=== PATIENT | female | born 1940 | race Caucasian/White ===

== ENCOUNTER → 2019-07-04 09:58 | Outpatient (CLI) | payer MEDICARE, OTHER, SELFPAY ==
--- NOTE | 2019-07-04 | DI.CT.S_ITS ---
PROCEDURE: CT ABDOMEN PELVIS WO/W CON INDICATIONS: Gross hematuria TECHNIQUE: Optional 5 mm thick noncontrast images acquired from the diaphragm to the symphysis pubis. After the administration of intravenous contrast, 5 mm thick images acquired from the diaphragm to the symphysis pubis after a 10-minute delay. 2 mm thick coronal and sagittal reformats were then performed of the kidneys and ureters. For radiation dose reduction, the following was used: automated exposure control, adjustment of mA and/or kV according to patient size. COMPARISON: None. FINDINGS: Image quality: Excellent. Lung bases: Lung bases are clear. Heart size is normal. Partially imaged an intact right breast implant. Urinary system: Both kidneys are normal size. There is an ovoid calcification in the right renal pelvis measuring about 1.3 x 1.5 cm. No hydronephrosis. Trace narrowing at the ureteropelvic junctions bilaterally. No left-sided urinary calcifications. No perinephric fat stranding. There is normal bilateral renal enhancement. Renal calyces appear normal in morphology when filled with contrast. Opacified portions of both ureters demonstrate normal caliber. The urinary bladder is completely decompressed and there are no visible calcifications. Other solid organs: Liver is normal in size and enhancement. There is a bilobed or thinly septated 4.2 cm cyst in the right lobe adjacent to the inferior vena cava. A few other tiny hypodensities are present in right and left liver lobes, the largest in left lobe is measuring 11 mm. Gallbladder is surgically absent. Biliary system is prominent postcholecystectomy. Spleen is normal in size and enhancement. Mild nodular low-density thickening of both adrenal glands, left more so than right. There is a multiloculated, microcystic, low-density mass in the proximal tail of the pancreas measuring roughly 2.3 x 1.4 x 1.6 cm. No ductal dilatation. No associated calcification. Peritoneum and bowel: Bowel loops demonstrate normal wall thickness and caliber. Occasional diverticulosis. Nonvisualization of the appendix. No free fluid or air. Nodes and vessels: No retroperitoneal or mesenteric adenopathy by size criteria. Mild fusiform aneurysmal dilatation of the mid celiac artery measuring up to 13 mm in diameter for length of about 1.8 cm. Aorta and inferior vena cava are normal in size. Abdominal wall: No ventral hernias. Pelvis: No pathologic free pelvic fluid. No inguinal hernias or adenopathy. Hysterectomy and possible right oophorectomy. Normal left ovarian tissue. Bones: No suspicious bony lesions. Right hip arthroplasty. Moderate upper lumbar leftward scoliosis. Multilevel degenerative disc change. No vertebral body compression fractures. IMPRESSION: 1. Nonobstructing right renal pelvis 1.5 cm calcification. 2. Nonobstructive, mild bilateral ureteropelvic junction narrowing. 3. Interval development of 2.3 cm multiloculated pancreatic cystic mass. Further evaluation with pancreatic protocol contrast enhanced MRI is recommended. 4. Chronic mid celiac artery aneurysm. 5. Other findings mentioned are stable. Dictated by: Adriana Mccormack M.D. on 07/04/2019 at 11:56 Approved by: Adriana Mccormack M.D. on 07/04/2019 at 12:14
[2019-07-04 10:27] LABS: Add Manual Diff / Slide Review NO; Basophils Absolute Auto 100 /uL (0-100); Basophils Percent Auto 1.1 % (0-2); Eosinophils Absolute Auto 300 /uL (0-450); Eosinophils Percent Auto 5.9 % (2-4); Hematocrit 46.5 % (36-46); Hemoglobin 15.6 g/dL (12.0-16.0); Lymphocytes Absolute Auto 1200 /uL (1100-4500); Lymphocytes Percent Auto 20.2 % (25-40); Mean Corpuscular HGB Conc 33.5 % (30-36); Mean Corpuscular Volume 92.6 fL (80-100); Monocytes Absolute Auto 300 /uL (0-900); Neutrophils Absolute Auto 3900 /uL (1500-7000); Neutrophils Percent Auto 66.8 % (50-75); Platelet Count 289 X10^3/uL (150-400); Red Blood Cell Count 5.03 X10^6/uL (4.0-5.2); Red Cell Distribution Width 13.2 % (11.6-14.8); White Blood Cell Count 5.8 X10^3/uL (4.5-11.0)
[2019-07-04 10:39] LABS: Blood Urea Nitrogen 14 mg/dL (7-17); Calcium 9.4 mg/dL (8.4-10.2); Carbon Dioxide 27 mmol/L (22-32); Chloride 103 mmol/L (98-107); Estimated Glomerular Filt Rate > 60.0 mL/min (>60); Glucose 105 mg/dL (80-110); HEMOLYSIS < 15 (0-50); Potassium 3.7 mmol/L (3.4-5.1); Sodium 140 mmol/L (137-145)
== END ==
PROVIDERS: Family Provider Internal Medicine Geriatric Medicine; PCP Internal Medicine Geriatric Medicine; Visit Provider Urology
DX: R31.0 Gross hematuria (principal); K76.89 Other specified diseases of liver; K86.9 Disease of pancreas, unspecified; N20.0 Calculus of kidney; N13.5 Crossing vessel and stricture of ureter without hydronephrosis; I72.8 Aneurysm of other specified arteries; M41.9 Scoliosis, unspecified; Z90.49 Acquired absence of other specified parts of digestive tract; Z96.641 Presence of right artificial hip joint
CPT/HCPCS: 36415; 74178; 80048; 85025; Q9967

== ENCOUNTER → 2019-07-25 12:26 | Outpatient (CLI) | payer MEDICARE, OTHER, SELFPAY ==
--- NOTE | 2019-07-25 | DI.MRI.S_ITS ---
PROCEDURE: MR ABDOMEN WO/W CON INDICATIONS: CYSTIC MASS OF PANCREAS TECHNIQUE: Coronal HASTE, axial 2D FLASH in- and [id number]; axial breath-hold T2 FSE with fat saturation from the hepatic dome to the iliac crests. Oblique coronal thin-slice and radial thick slab HASTE through the biliary system. Dynamic axial VIBE during administration of contrast. Post-contrast coronal VIBE or 2D FLASH with fat saturation from the hepatic dome to the iliac crests. Optional diffusion weighted imaging and ADC may be performed. COMPARISON: [facility], CT, IVP (ABD & PEL WWO CONTRAST), 07/17/2016, 10:18. [facility], CT, CT ABDOMEN PELVIS WO/W CON, 07/04/2019, 10:45. FINDINGS: Image quality: There is mild motion artifact. Pancreas and biliary system: The gallbladder is surgically absent. There is intra-and extrahepatic biliary ductal dilatation with the common bile duct measuring up to approximately 12 m. There is tapering distally into the ampulla of Vater without a discrete filling defect to suggest choledocholithiasis. The main pancreatic duct is normal in caliber. At the junction of the pancreatic body and tail, there is a lobulated thin walled cystic lesion redemonstrated measuring up to approximately 2.4 x 1.4 x 1.4 cm. There are associated thin septations. No discrete nodular solid component identified. No definite suspicious internal enhancement. This likely communicates with the main pancreatic duct. The findings most likely represents a small side branch intraductal papillary mucinous neoplasm (IPMN). In addition, within the adjacent pancreatic tail, there is an oval cystic lesion measuring up to 1.9 x 0.8 cm in transverse dimension also with suspected communication with the main pancreatic duct. In the pancreatic body, there are 2-3 small additional cystic foci measuring up to 0.4 cm adjacent to the main pancreatic duct. In the pancreatic head, there is also a small cystic lesion measuring up to 0.6 cm adjacent to the pancreatic duct. No associated internal enhancement within these lesions following contrast ministration. Findings also likely represent small side branch IPMNs. Solid organs: Multiple cysts are redemonstrated within the liver including a septated cyst in the medial right hepatic dome. No definite suspicious hepatic mass. Spleen is normal in size and enhancement. No adrenal nodules. Kidneys redemonstrate a filling defect within the right renal pelvis consistent with a renal stone, measuring up to 1.0 cm. No definite associated hydronephrosis. No left hydronephrosis. Nodes and vessels: No retroperitoneal or mesenteric adenopathy by size criteria. Aorta and inferior vena cava are normal in size. Bowel and peritoneum: Visualized bowel loops are normal in caliber throughout. No free fluid. Lung bases: No basal pleural effusions. Heart size is enlarged. Bones and soft tissues: No ventral hernias. Bone marrow is normal in overall signal. IMPRESSION: 1. Lobulated cystic lesion at the junction of the pancreatic body and tail most likely represents a sidebranch IPMN. Given the size of the lesion and change compared to older studies, followup is recommended in 6 months to demonstrate stability. 2. Additional small cystic lesions within the pancreas also likely represent small sidebranch IPMNs. Recommend attention on followup. 3. Right nephrolithiasis without evidence of hydronephrosis. Dictated by: Denver Garcia M.D. on 07/25/2019 at 16:54 Approved by: Denver Garcia M.D. on 07/25/2019 at 17:04
== END ==
PROVIDERS: Family Provider Internal Medicine Geriatric Medicine; PCP Internal Medicine Geriatric Medicine; Referring Provider Internal Medicine Geriatric Medicine; Visit Provider Internal Medicine Geriatric Medicine
DX: K86.2 Cyst of pancreas (principal); N20.0 Calculus of kidney
CPT/HCPCS: 74183

== ENCOUNTER → 2020-06-29 12:42 | Outpatient (CLI) | payer MEDICARE, OTHER, SELFPAY ==
--- NOTE | 2020-06-29 | DI.MRI.S_ITS ---
PROCEDURE: MR LUMBAR SPINE WO CON INDICATIONS: Radiculopathy, lumbar region TECHNIQUE: Noncontrast sagittal T1 spin echo and T2 fast echo, sagittal STIR, axial T1 and T2 fast spin echo through the lumbar spine. In cases with scoliosis, additional coronal T2 fast spin echo may be performed. COMPARISON: [facility], CT, IVP (ABD & PEL WWO CONTRAST), 07/17/2016, 10:18. [facility], CT, CT ABDOMEN PELVIS WITH CONTRAST, 12/24/2019, 15:47. [facility], MR, L-SPINE WITHOUT CONTRAST, 10/01/2015, 14:02. [facility] [place], [place], XR LUMBAR SPINE WITH OLBIQUES PLUS FLEXION EXTENSION, 04/30/2020, 9:41. FINDINGS: Image quality: Excellent. Alignment and Curvature: There is moderate levoconvex thoracolumbar scoliosis. There is mild retrolisthesis seen at L2-L3 and L3-L4. Minimal retrolisthesis is seen at L4-L5. Mild grade 1 anterolisthesis is seen at L5-S1. Associated pars defects are not seen. Bone Marrow: Marrow is of normal overall signal. No acute vertebral body compression fractures. Spinal Cord: Conus medullaris terminates at the L1 level. Visualized cord demonstrates normal signal and size. Paraspinous Soft Tissues: No paravertebral masses. T12-L1: No significant abnormality is seen. L1-L2: The disc height is well-preserved. Loss of disc signal is seen at this level. Mild generalized disc bulge is seen. There is a right lateral recess disc extrusion, with superior migration of the disc material. There is moderate left-sided and moderate to severe right-sided neural foraminal narrowing seen. No significant central canal narrowing is seen. The disc extrusion is new compared to the prior examination. L2-L3: Moderate to severe loss of disc height and disc signal can be seen. Reactive marrow endplate changes are seen, which are hyperintense on T1-weighted and T2-weighted imaging and most consistent with fatty metaplasia (Modic type II changes). At least moderate disc bulge is seen. There is a central disc protrusion. At least moderate facet hypertrophy is seen. Associated hypertrophy of the ligamentum flavum can be seen. There is moderate left-sided and moderate to severe right-sided neural foraminal narrowing seen. There is a degree of compression seen upon the exiting right L2 nerve root. Moderate to severe central canal narrowing is seen, as on series 6, image 19. These imaging findings have progressed compared to the prior study. L3-L4: At least moderate loss of disc height and disc signal can be seen. Moderate disc bulge is seen, which is eccentric to the right side. Moderate to prominent facet hypertrophy is seen. Associated hypertrophy of the ligamentum flavum can be seen. There is moderate to severe bilateral neural foraminal narrowing seen. There is a degree of compression seen upon the exiting nerve roots. Moderate to severe central canal narrowing is seen, as on series 6, image 23. When comparison is made with the prior examination, these findings are similar. L4-L5: The disc height is well-preserved. Loss of disc signal is seen at this level. Mild disc bulge is seen, with a mild central disc extrusion. At least moderate facet hypertrophy can be seen. Associated hypertrophy of the ligamentum flavum can be seen. There is at least moderate bilateral neural foraminal narrowing seen. At least moderate central canal narrowing can be seen at this level. These imaging findings have progressed compared to the prior study. L5-S1: The disc height is well-preserved. Loss of disc signal is seen at this level. Mild to moderate disc bulge is seen. There is at least moderate right-sided and moderate to severe left-sided facet hypertrophy seen. There is moderate to severe bilateral neural foraminal narrowing seen, left worse than right. There is a degree of compression seen upon the exiting nerve roots. At least moderate central canal narrowing can be seen. There is slight progression compared to 2016. S1-S2: A transitional, rudimentary disc can be seen. IMPRESSION: Multiple levels of lumbar spine degenerative change are seen, which have overall progressed compared to 2016. Dictated by: Uzair Mcneil M.D. on 06/29/2020 at 13:44 Approved by: Uzair Mcneil M.D. on 06/29/2020 at 13:53
== END ==
PROVIDERS: Family Provider Internal Medicine Geriatric Medicine; PCP Internal Medicine Geriatric Medicine; Referring Provider Physical Medicine & Rehabilitation; Visit Provider Physical Medicine & Rehabilitation
DX: M47.26 Other spondylosis with radiculopathy, lumbar region (principal); M47.27 Other spondylosis with radiculopathy, lumbosacral region
CPT/HCPCS: 72148